=== PATIENT | male | born 1955 | race Caucasian/White ===

== ENCOUNTER 2018-03-27 06:18 | Day surgery (SDC) | payer OTHER ==
[2018-03-27] MEDS ORDERED: PROPOFOL 60 ML (09:41)
== END 2018-03-27 10:36 | disposition home or self-care (01) ==
LOC: GIL 06:18
DX: K92.1 Melena (principal); K29.30 Chronic superficial gastritis without bleeding; K64.4 Residual hemorrhoidal skin tags; I10 Essential (primary) hypertension; I25.10 Atherosclerotic heart disease of native coronary artery without angina pectoris
CPT/HCPCS: 43239; 88305; 88312